=== PATIENT | female | born 1955 | race Two or more races ===

== ENCOUNTER 2022-12-21 14:07 | Emergency (ER) | payer OTHER ==
[~2022-12-21] VITALS: Ht 157.5 cm; Wt 62.6 kg
[2022-12-21] MEDS ORDERED: LISINOPRIL10 MG (14:36)
== END 2022-12-21 16:13 | disposition home or self-care (01) ==
LOC: ER 14:07
DX: M94.0 Chondrocostal junction syndrome [Tietze] (principal); I10 Essential (primary) hypertension
CPT/HCPCS: 36415; 93005; 99284; J1885